=== PATIENT | male | born 1955 | race Caucasian/White ===

== ENCOUNTER 2022-09-15 04:00 | Day surgery (SDC) | payer OTHER ==
[2022-09-05 15:28] VITALS: BMI 24.3
[2022-09-15] MEDS ORDERED: MIDAZOLAM HCL 2 MG/2 ML SINGLE DOSE VIAL ONE (08:38)
[2022-09-15 09:24] VITALS: PULSE 59; TEMP 97.2
[2022-09-15 10:57] VITALS: BP 122/70; RESP 18
== END 2022-09-15 10:58 | disposition home or self-care (01) ==
LOC: JASU-SURG 04:00
PROVIDERS: ATTEND Urology
PROC: 0TF3XZZ Fragmentation in Right Kidney Pelvis, External Approach (ICD-10-PCS; principal; 2022-09-15 08:30)
DX: N20.0 Calculus of kidney (principal)